=== PATIENT | female | born 1940 | race Caucasian/White ===

== ENCOUNTER 2016-12-06 23:46 | Observation (INO) ==
[2016-12-07 00:13] LABS: Basophils % 0.2 %; Eosinophils # 0.2 K/mcL (0.0-0.6); Eosinophils % 1.9 %; Hematocrit 37.2 % (35.3-44.9); Immature Granulocytes % 0.5 % (0-4); Lymphocytes # 1.4 K/mcL (0.6-4.6); Lymphocytes % 15.3 %; Mean Corpuscular HGB Conc 32.3 g/dL (31.6-35.5); Mean Corpuscular Hemoglobin 31.6 pg (28.0-33.3); Mean Corpuscular Volume 97.9 fL (83.0-100.0); Mean Platelet Volume 8.9 fL (9.4-12.4); Monocytes # 0.9 K/mcL (0.0-1.3); Monocytes % 9.9 %; Neutrophils # 6.4 K/mcL (1.6-8.9); Platelet Count 311 K/mcL (140-400); Red Cell Distribution Width 14.1 % (11.5-14.5); Segmented Neutrophils % 72.2 %
[2016-12-07 00:18] LABS: Prothrombin Time 10.6 Seconds (9.4-12.1)
[2016-12-07 00:21] LABS: Activated Partial Thrombo Time 25.1 Seconds (26.0-36.0)
[2016-12-07 00:28] LABS: BUN/Creatinine Ratio 21 (6-26); Blood Urea Nitrogen 18 mg/dL (7-20); Calcium 9.1 mg/dL (8.6-10.8); Carbon Dioxide 24 mEq/L (19-29); Chloride 103 mEq/L (98-109); Glucose 111 mg/dL (70-99); Osmolality,Calculated 289 (280-300); Potassium 3.8 mEq/L (3.5-4.5); Sodium 138 mEq/L (136-145); eGFR For African Americans > 60 (> 60); eGFR For Non-African Americans > 60 (> 60)
[2016-12-07 00:29] LABS: Alanine Aminotransferase 54 Units/L (0-55); Albumin 3.5 g/dL (3.5-5.0); Albumin/Globulin Ratio 1.2 (1.1-2.2); Alkaline Phosphatase 81 Units/L (38-126); Aspartate Amino Transferase 89 Units/L (5-34); Bilirubin,Indirect 0.2 mg/dL (0.0-1.2); Globulin 2.9 g/dL (2.4-3.5); Lipase 280 Units/L (8-78); Total Protein 6.4 g/dL (6.0-8.3)
[2016-12-07 00:33] LABS: Bilirubin,Direct < 0.1 mg/dL (0.0-0.5); Bilirubin,Total < 0.3 mg/dL (0.2-1.2)
[2016-12-07 01:19] LABS: Bilirubin,Urine Negative (Negative); Blood,Urine Negative (Negative); Clarity,Urine Clear (Clear); Color,Urine Yellow (Yellow); Glucose,Urine (UA) Normal (Normal); Ketones,Urine Negative (Negative); Leukocyte Esterase,Urine Small (Negative); Nitrite,Urine Negative (Negative); PH,Urine 5.5 pH Units (5.0-8.0); Protein,Urine Negative (Neg-Trace); Specific Gravity,Urine > 1.030 (1.010-1.025); Urobilinogen,Urine Normal (Normal)
[2016-12-07 01:26] LABS: Squamous Epithelial Cell,Urine Many per lpf (None-Few)
[2016-12-07 01:27] LABS: Bacteria,Urine Few per hpf (None-Few); Mucus,Urine Few (Few); RBC,Urine 0-3 per hpf (0-3)
--- NOTE | 2016-12-07 01:41 | Emergency Department Note ---
Disposition Clinical Impression: Chest pain, rule out acute myocardial infarction Disposition: Admitted As Inpatient Condition: Good Referrals: Bill Russo MD [Primary Care Provider] - Forms: ED Satisfaction Letter Time of Disposition: 01:59 Chest Pain HPI - General Chief Complaint: ED Chest Pain Stated Complaint: CP Time Seen by Provider: 12/06/16 23:49 Source: patient Limitations: no limitations Vital Signs Reviewed: Yes Nursing Notes Reviewed: Yes - History of Present Illness HPI Narrative: 76 year old female who has a multiple risk factor for cardiac disease including HTN, hyperlipidemia, diabetes, and early family history and states that she had midsternal chest pain at 2230 this moring with radiation into her left arm and jaw and increse exertinal dyspnea. Patinet states she does not have a previous history of KS or stent placement and has not had a recent cardiac catherization or stent placed. Patient denies nausea, vomitting, abdomninal pain or UTI symptoms. She denies history of DVT/PE. Severity scale (1-10): 3 - Related Data Home Medications Medication Instructions Recorded Confirmed Atorvastatin Calcium [Lipitor] 20 mg PO DAILY 04/21/15 12/07/16 Citalopram Hydrobromide [Celexa] 20 mg PO DAILY 04/21/15 12/07/16 Omega3/Dha/Epa/Fish Oil/Vit D3 1 cap PO DAILY 04/21/15 12/07/16 [Fish Oil + Vitamin D-3 Softgel] Pantoprazole Sodium [Protonix] 40 mg PO DAILY 04/21/15 12/07/16 Clopidogrel [Plavix] 75 mg PO DAILY 08/30/15 12/07/16 Losartan/Hydrochlorothiazide 1 tab PO DAILY 08/30/15 12/07/16 [Hyzaar 100-25 Tablet] Metoprolol XL (24 HR) Succ [Toprol 25 mg PO DAILY 08/30/15 12/07/16 Xl] TraZODone 150 mg PO HS 08/30/15 12/07/16 metFORMIN [Glucophage] 1,000 mg PO BID 08/30/15 12/07/16 Allergies Allergy/AdvReac Type Severity Reaction Status Date / Time No Known Allergies Allergy Verified 09/11/15 02:04 Constitutional: Denies: fever, chills, weakness, weight change Eyes: Denies: eye pain, eye discharge, vision change ENT ED: Denies: ear pain, throat pain, dental pain, hearing loss, epistaxis, congestion, dysphagia Cardiovascular: Reports: chest pain, dyspnea on exertion. Denies: palpitations , edema, syncope, paroxysmal nocturnal dyspnea Respiratory: Denies: cough, dyspnea, wheezes, hemoptysis, stridor Gastrointestinal: Denies: abdominal pain, nausea, vomiting, diarrhea, constipation, hematemesis, melena, hematochezia Genitourinary: Denies: dysuria, frequency, hematuria, discharge Musculoskeletal: Denies: back pain, neck pain, arthralgia, myalgia Integumentary: Denies: rash, abrasion, lesions Neurological: Denies: headache, weakness, numbness, paresthesias, confusion, abnormal gait, vertigo Psychiatric: Denies: anxiety, depression, suicidal thoughts, homicidal thoughts , auditory hallucinations, visual hallucinations Endocrine: Denies: fatigue Hematological/Lymphatic: Denies: easy bleeding, easy bruising Allergic/Immunologic: Denies: facial swelling, urticaria Chest Pain PMH - Past Medical History Medical history: Reports: CVA, diabetes, hyperlipidemia, hypertension, TIA, other Surgical history: Reports: appendectomy, cholecystectomy Psychiatric history: Reports: no psych history - Social History Smoking Status: Never smoker Alcohol use: Reports: none Drug use: Reports: none Physical Exam - General Limitations: no limitations General appearance: alert, in no apparent distress - Head Head exam: atraumatic, normocephalic, normal inspection - Eye Eye exam: Present: normal appearance, PERRL, EOMI - Expanded Eye Exam Pupils: Left: reactive - ENT ENT exam: normal exam, normal oropharynx, mucous membranes moist - Expanded ENT Exam External ear exam: Present: normal external inspection Mouth exam: Present: normal external inspection Teeth exam: Present: normal inspection Throat exam: Present: normal inspection - Neck Neck exam: Present: normal inspection, full ROM, trachea midline - Chest Chest inspection: Present: normal inspection, symmetric chest wall rise - Respiratory Respiratory exam: Present: normal lung sounds bilaterally - Cardiovascular Cardiovascular exam: Present: regular rate, normal rhythm, normal heart sounds - Abdominal Exam Abdominal exam: Present: soft, Non-Tender. Absent: tenderness, distention, guarding, rebound, rigidity - Extremities Exam Extremities exam: Present: normal inspection, full ROM. Absent: tenderness, pedal edema - Expanded Upper Extremity Exam Shoulder exam: Present: normal inspection, full ROM Arm exam: Present: normal inspection, full ROM Elbow exam: Present: normal inspection, full ROM Forearm/Wrist exam: Present: normal inspection, full ROM Hand exam: Present: normal inspection, full ROM Vascular exam: Normal: capillary refill, radial pulse - Expanded Lower Extremity Exam Hip/Pelvis exam: Present: normal inspection, full ROM Upper leg exam: Present: normal inspection, full ROM Knee exam: Present: normal inspection, full ROM Lower leg exam: Present: normal inspection, full ROM Ankle exam: Present: normal inspection, full ROM Foot/toe exam: Present: normal inspection, full ROM Neurovascular/Tendon exam: Absent: motor deficit, sensory deficit, tendon deficit - Back Exam Back exam: Present: normal inspection, full ROM. Absent: tenderness - Neurological Exam Neurological exam: Present: alert, oriented X3 - Expanded Neurological Exam Patient oriented to: Present: person, place, time Coma Scale Eye Opening: Spontaneous Coma Scale Motor Response: Obeys Commands Coma Scale Verbal Response: Oriented Coma Scale Total: 15 - Psychiatric Psychiatric exam: Present: normal affect, normal mood - Skin Skin exam: Present: warm, dry, intact, normal color Course Course Narrative: we will do chest pain workup with lipase and lfts. ASA and nitro for pain relief. - Reevaluation(s) Reevaluation #1: elevated lipase, will obtain a ABCT to rule out pancreatitis Time: 01:00 Reevaluation #2: stephanie will be admitted to medicine for rule out ACS. Patient is agreeable to plan. Time: 01:44 - Consultations Consultation #1: discussed case with Dr. Lu and he accepts stephanie for admission Time: 01:59 Vital Signs Temperature 98.0 F 12/06/16 23:48 Pulse Rate 78 12/06/16 23:48 Respiratory Rate 16 12/06/16 23:48 Blood Pressure 131/76 12/06/16 23:48 O2 Sat by Pulse Oximetry 94 12/06/16 23:48 Temperature 98.0 F 12/06/16 23:48 Pulse Rate 73 12/07/16 01:23 Respiratory Rate 16 12/07/16 01:23 Blood Pressure 124/77 12/07/16 01:23 O2 Sat by Pulse Oximetry 94 12/07/16 01:23 Oxygen Delivery Oxygen Delivery Room Air Chest Pain - Lab Data Result diagrams: 12/07/16 00:06 12/07/16 00:06 Lab Results 12/07/16 12/07/16 12/07/16 Range/Units 00:06 00:06 00:06 WBC (4.3-11.1) K/mcL RBC (3.82-4.97) M/mcL Hgb (11.5-15.4) g/dL Hct (35.3-44.9) % MCV (83.0-100.0) fL MCH (28.0-33.3) pg MCHC (31.6-35.5) g/dL RDW (11.5-14.5) % Plt Count (140-400) K/mcL MPV (9.4-12.4) fL Immature Gran % (0-4) % Seg Neutrophils % % Lymphocytes % % Monocytes % % Eosinophils % % Basophils % % Neutrophils # (1.6-8.9) K/mcL Lymphocytes # (0.6-4.6) K/mcL Monocytes # (0.0-1.3) K/mcL Eosinophils # (0.0-0.6) K/mcL Basophils # (0.0-0.2) K/mcL PT 10.6 (9.4-12.1) Seconds INR 1.0 APTT 25.1 L (26.0-36.0) Seconds Sodium (136-145) mEq/L Potassium (3.5-4.5) mEq/L Chloride (98-109) mEq/L Carbon Dioxide (19-29) mEq/L BUN (7-20) mg/dL Creatinine (0.57-1.11) mg/dL Est GFR ( Amer) (> 60) Est GFR (Non-Af Amer) (> 60) BUN/Creatinine Ratio (6-26) Glucose (70-99) mg/dL Calculated Osmolality (280-300) Calcium (8.6-10.8) mg/dL Total Bilirubin < 0.3 (0.2-1.2) mg/dL Direct Bilirubin < 0.1 (0.0-0.5) mg/dL Indirect Bilirubin 0.2 (0.0-1.2) mg/dL AST 89 H (5-34) Units/L ALT 54 (0-55) Units/L Alkaline Phosphatase 81 (38-126) Units/L Troponin I (0-0.03) ng/mL B-Natriuretic Peptide 14 (0-100) pg/mL Serum Total Protein 6.4 (6.0-8.3) g/dL Albumin 3.5 (3.5-5.0) g/dL Globulin 2.9 (2.4-3.5) g/dL Albumin/Globulin Ratio 1.2 (1.1-2.2) Lipase 280 H (8-78) Units/L Urine Color (Yellow) Urine Clarity (Clear) Urine pH (5.0-8.0) pH Units Ur Specific [place] (1.010-1.025) Urine Protein (Neg-Trace) mg/dL Urine Glucose (UA) (Normal) mg/dL Urine Ketones (Negative) mg/dL Urine Blood (Negative) Urine Nitrite (Negative) Urine Bilirubin (Negative) Urine Urobilinogen (Normal) mg/dL Ur Leukocyte Esterase (Negative) Urine Microscopic RBC (0-3) per hpf Urine Microscopic WBC (0-3) per hpf Ur Squamous Epith Cells (None-Few) per lpf Urine Bacteria (None-Few) per hpf Urine Mucus (Few) Ur Culture Indicated? (NO) 12/07/16 12/07/16 12/07/16 Range/Units 00:06 00:06 00:06 WBC 8.8 (4.3-11.1) K/mcL RBC 3.80 L (3.82-4.97) M/mcL Hgb 12.0 (11.5-15.4) g/dL Hct 37.2 (35.3-44.9) % MCV 97.9 (83.0-100.0) fL MCH 31.6 (28.0-33.3) pg MCHC 32.3 (31.6-35.5) g/dL RDW 14.1 (11.5-14.5) % Plt Count 311 (140-400) K/mcL MPV 8.9 L (9.4-12.4) fL Immature Gran % 0.5 (0-4) % Seg Neutrophils % 72.2 % Lymphocytes % 15.3 % Monocytes % 9.9 % Eosinophils % 1.9 % Basophils % 0.2 % Neutrophils # 6.4 (1.6-8.9) K/mcL Lymphocytes # 1.4 (0.6-4.6) K/mcL Monocytes # 0.9 (0.0-1.3) K/mcL Eosinophils # 0.2 (0.0-0.6) K/mcL Basophils # 0.0 (0.0-0.2) K/mcL PT (9.4-12.1) Seconds INR APTT (26.0-36.0) Seconds Sodium 138 (136-145) mEq/L Potassium 3.8 (3.5-4.5) mEq/L Chloride 103 (98-109) mEq/L Carbon Dioxide 24 (19-29) mEq/L BUN 18 (7-20) mg/dL Creatinine 0.87 (0.57-1.11) mg/dL Est GFR ( Amer) > 60 (> 60) Est GFR (Non-Af Amer) > 60 (> 60) BUN/Creatinine Ratio 21 (6-26) Glucose 111 H (70-99) mg/dL Calculated Osmolality 289 (280-300) Calcium 9.1 (8.6-10.8) mg/dL Total Bilirubin (0.2-1.2) mg/dL Direct Bilirubin (0.0-0.5) mg/dL Indirect Bilirubin (0.0-1.2) mg/dL AST (5-34) Units/L ALT (0-55) Units/L Alkaline Phosphatase (38-126) Units/L Troponin I 0.01 (0-0.03) ng/mL B-Natriuretic Peptide (0-100) pg/mL Serum Total Protein (6.0-8.3) g/dL Albumin (3.5-5.0) g/dL Globulin (2.4-3.5) g/dL Albumin/Globulin Ratio (1.1-2.2) Lipase (8-78) Units/L Urine Color (Yellow) Urine Clarity (Clear) Urine pH (5.0-8.0) pH Units Ur Specific [place] (1.010-1.025) Urine Protein (Neg-Trace) mg/dL Urine Glucose (UA) (Normal) mg/dL Urine Ketones (Negative) mg/dL Urine Blood (Negative) Urine Nitrite (Negative) Urine Bilirubin (Negative) Urine Urobilinogen (Normal) mg/dL Ur Leukocyte Esterase (Negative) Urine Microscopic RBC (0-3) per hpf Urine Microscopic WBC (0-3) per hpf Ur Squamous Epith Cells (None-Few) per lpf Urine Bacteria (None-Few) per hpf Urine Mucus (Few) Ur Culture Indicated? (NO) 12/07/16 Range/Units 01:10 WBC (4.3-11.1) K/mcL RBC (3.82-4.97) M/mcL Hgb (11.5-15.4) g/dL Hct (35.3-44.9) % MCV (83.0-100.0) fL MCH (28.0-33.3) pg MCHC (31.6-35.5) g/dL RDW (11.5-14.5) % Plt Count (140-400) K/mcL MPV (9.4-12.4) fL Immature Gran % (0-4) % Seg Neutrophils % % Lymphocytes % % Monocytes % % Eosinophils % % Basophils % % Neutrophils # (1.6-8.9) K/mcL Lymphocytes # (0.6-4.6) K/mcL Monocytes # (0.0-1.3) K/mcL Eosinophils # (0.0-0.6) K/mcL Basophils # (0.0-0.2) K/mcL PT (9.4-12.1) Seconds INR APTT (26.0-36.0) Seconds Sodium (136-145) mEq/L Potassium (3.5-4.5) mEq/L Chloride (98-109) mEq/L Carbon Dioxide (19-29) mEq/L BUN (7-20) mg/dL Creatinine (0.57-1.11) mg/dL Est GFR ( Amer) (> 60) Est GFR (Non-Af Amer) (> 60) BUN/Creatinine Ratio (6-26) Glucose (70-99) mg/dL Calculated Osmolality (280-300) Calcium (8.6-10.8) mg/dL Total Bilirubin (0.2-1.2) mg/dL Direct Bilirubin (0.0-0.5) mg/dL Indirect Bilirubin (0.0-1.2) mg/dL AST (5-34) Units/L ALT (0-55) Units/L Alkaline Phosphatase (38-126) Units/L Troponin I (0-0.03) ng/mL B-Natriuretic Peptide (0-100) pg/mL Serum Total Protein (6.0-8.3) g/dL Albumin (3.5-5.0) g/dL Globulin (2.4-3.5) g/dL Albumin/Globulin Ratio (1.1-2.2) Lipase (8-78) Units/L Urine Color Yellow (Yellow) Urine Clarity Clear (Clear) Urine pH 5.5 (5.0-8.0) pH Units Ur Specific [place] > 1.030 H (1.010-1.025) Urine Protein Negative (Neg-Trace) mg/dL Urine Glucose (UA) Normal (Normal) mg/dL Urine Ketones Negative (Negative) mg/dL Urine Blood Negative (Negative) Urine Nitrite Negative (Negative) Urine Bilirubin Negative (Negative) Urine Urobilinogen Normal (Normal) mg/dL Ur Leukocyte Esterase Small H (Negative) Urine Microscopic RBC 0-3 (0-3) per hpf Urine Microscopic WBC 5-15 H (0-3) per hpf Ur Squamous Epith Cells Many H (None-Few) per lpf Urine Bacteria Few (None-Few) per hpf Urine Mucus Few (Few) Ur Culture Indicated? YES A (NO) - EKG Data EKG attestation: Yes I reviewed and interpreted this EKG. EKG results narrative: NSR with rate of 78. NO STEMI. normal intercals. no change from 10/23/14. electroncially paced. [id number] Heart Score - Score History: Moderately Suspicious EKG: Normal Age: Greater than 65 Risk Factors: Equal/Greater than 3 risk factor or history of atherosclerotic disease Troponin: Less than normal limit HEART Score Total: 5
[2016-12-07] MEDS ORDERED: Aspirin 325 MG TABLET PO ONE (01:43)
[2016-12-07] MEDS ORDERED: *HR* Morphine 2 MG/ML SYRINGE IVP ONE (01:43)
[2016-12-07] MEDS ORDERED: *HR* Morphine 2 MG/ML SYRINGE IVP PRN (02:43)
[2016-12-07] MEDS ORDERED: Naloxone 0.4 MG/ML INJ IVP PRN (02:43)
[2016-12-07] MEDS ORDERED: Ondansetron 4 MG/2 ML VIAL IVP PRN (02:43)
[2016-12-07] MEDS ORDERED: Acetaminophen 325 MG TABLET PO PRN (02:43)
[2016-12-07] MEDS ORDERED: *HR* HYDROcodone/Acet 5/325 mg TABLET PO PRN (02:43)
[2016-12-07] MEDS ORDERED: Dextrose Gel 15 GM PO PRN ×2 (02:45)
[2016-12-07] MEDS ORDERED: *HR* Dextrose 50 % in Water (Syg) 50 ML SYRINGE IVP PRN (02:45)
[2016-12-07] MEDS ORDERED: D5% in Water 1,000 ML IVC PRN (02:45)
[2016-12-07] MEDS ORDERED: Nitroglycerin 0.4 MG TAB.SUBL SL PRN (02:46)
--- NOTE | 2016-12-07 02:48 | Internal Med History&Physical ---
Date of Encounter: 12/07/16 Time of Encounter: 02:00 Internal Medicine - H&P: HPI History of present illness: Ms. Lopez is a 76 year old female Past Med Surg Social Fam HX - Past Medical History Medical history: CVA, diabetes, hyperlipidemia, hypertension, TIA, other Psychiatric history: no psych history - Past Surgical History Surgical History: appendectomy, cholecystectomy - Social History Smoking Status: Never smoker Smokeless Tobacco Status: No Alcohol use: none Drug use: none Internal Medicine - H&P: Meds Atorvastatin Calcium [Lipitor] 20 mg PO DAILY 04/21/15 [History] Citalopram Hydrobromide [Celexa] 20 mg PO DAILY 04/21/15 [History] Omega3/Dha/Epa/Fish Oil/Vit D3 [Fish Oil + Vitamin D-3 Softgel] 1 cap PO DAILY 04/21/15 [History] Pantoprazole Sodium [Protonix] 40 mg PO DAILY 04/21/15 [History] Clopidogrel [Plavix] 75 mg PO DAILY 08/30/15 [History] Losartan/Hydrochlorothiazide [Hyzaar 100-25 Tablet] 1 tab PO DAILY 08/30/15 [ History] Metoprolol XL (24 HR) Succ [Toprol Xl] 25 mg PO DAILY 08/30/15 [History] TraZODone 150 mg PO HS 08/30/15 [History] metFORMIN [Glucophage] 1,000 mg PO BID 08/30/15 [History] 3 Allergy/AdvReac Type Severity Reaction Status Date / Time No Known Allergies Allergy Verified 09/11/15 02:04 All Systems PM: A 10-system review of systems was performed and is negative for pertinent findings except as documented above in the HPI. - Constitutional Vitals: Temp Pulse Resp BP Pulse Ox 98.0 F 73 16 124/77 94 12/06/16 23:48 12/07/16 01:23 12/07/16 01:23 12/07/16 01:23 12/07/16 01:23 Internal Med - H&P Results - Labs CBC & Chem 7: 12/07/16 00:06 12/07/16 00:06 - Impressions ITS Impressions Chest X-Ray 12/07/16 23:50 IMPRESSION: Negative portable chest. D/ / Stuart Segura MD / Stuart Segura MD Interpreting Provider: Stuart Segura MD
--- NOTE | 2016-12-07 03:16 | Internal Med History&Physical ---
Date of Encounter: 12/07/16 Time of Encounter: 03:13 Assessment and Plan (1) Chest pain, rule out acute myocardial infarction Current visit: Yes Status: Acute due to high risk factors given co-morbidities, admit for stress testing r/o cardiac ischemia and risk stratification. Trend trop (2) DMII (diabetes mellitus, type 2) Current visit: Yes Status: Acute hold metformin, ISS for now Qualifiers: Diabetes mellitus complication status: without complication Diabetes mellitus mcc insulin use: without dedicated intermodal truck driver use Qualified Code(s): E11.9 - Type 2 diabetes mellitus without complications (3) HTN (hypertension) Current visit: Yes Status: Acute continue med Qualifiers: Hypertension type: essential hypertension Qualified Code(s): I10 - Essential (primary) hypertension (4) HLD (hyperlipidemia) Current visit: Yes Status: Acute statin Qualifiers: Qualified Code(s): E78.2 - Mixed hyperlipidemia (5) CVA (cerebral vascular accident) Current visit: Yes Status: Acute hx of CVA. 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 She was lying in bed around 1030 pm when she experienced a squeezing substernal pain , 9/10, one of the worse pain she has felt, some radiation under the jaw, lasting for approx 20mins. That put her into a panic and led to her calling family and arrival to the ED. On encounter, the chest pain is not as sharp after ASA given but still has a heavy sensation. EKG reviewed by self with rate 78, NSR Lipase noted 280 but no abdominal pain or imaging evidence of pancreatitis on CT A/P CXR wnl Past Med Surg Social Fam HX - Past Medical History Medical history: CVA, diabetes, hyperlipidemia, hypertension, TIA, other Psychiatric history: no psych history - Past Surgical History Surgical History: appendectomy, cholecystectomy - Social History Smoking Status: Never smoker Smokeless Tobacco Status: No Alcohol use: none Drug use: none - Additional Family History Additional family history: HTN Internal Medicine - H&P: Meds Atorvastatin Calcium [Lipitor] 20 mg PO DAILY 04/21/15 [History] Citalopram Hydrobromide [Celexa] 20 mg PO DAILY 04/21/15 [History] Omega3/Dha/Epa/Fish Oil/Vit D3 [Fish Oil + Vitamin D-3 Softgel] 1 cap PO DAILY 04/21/15 [History] Pantoprazole Sodium [Protonix] 40 mg PO DAILY 04/21/15 [History] Clopidogrel [Plavix] 75 mg PO DAILY 08/30/15 [History] Losartan/Hydrochlorothiazide [Hyzaar 100-25 Tablet] 1 tab PO DAILY 08/30/15 [ History] Metoprolol XL (24 HR) Succ [Toprol Xl] 25 mg PO DAILY 08/30/15 [History] TraZODone 150 mg PO HS 08/30/15 [History] metFORMIN [Glucophage] 1,000 mg PO BID 08/30/15 [History] 3 Allergy/AdvReac Type Severity Reaction Status Date / Time No Known Allergies Allergy Verified 09/11/15 02:04 All Systems PM: A 10-system review of systems was performed and is negative for pertinent findings except as documented above in the HPI. Review of systems: ROS 14 point review of systems reviewed as best as possible given presentation. Pertinent positive or negative as per HPI or otherwise reviewed as negative - Constitutional Vitals: Temp Pulse Resp BP Pulse Ox 98.0 F 73 16 145/83 94 12/06/16 23:48 12/07/16 01:23 12/07/16 02:55 12/07/16 02:55 12/07/16 01:23 Exam: General - AAO x 3 Psych - Appropriate affect/speech. No agitation Eyes - MARIUSZ. Eye lids intact. No scleral icterus ENT - Oral mucosa pink, dentition intact. External ear clear/dry/intact. No thyromegaly Lymphatics - No cervical/inguinal lympadenopathy Neuro - No gross peripheral or central neuro deficits with intact CN 2-12 exam Heart - Sinus. RRR. S1 and S2 present. No added HS/murmurs appreciated. No elevated JVD appreciated. No calf swellings/erythema Lung - Adequate air entry b/l, No crackes/wheezes appreciated GI - Soft, non-tender. No hepatosplenomegaly/ascites. BS+ - No CVA/suprapubic tenderness or palpable bladder distension Skin - Intact. No rash/petechiae/ecchymosis. Warm extremities MSK - Joints with normal ROM. No joint swellings Internal Med - H&P Results - Labs CBC & Chem 7: 12/07/16 00:06 12/07/16 00:06 - Impressions ITS Impressions Chest X-Ray 12/07/16 23:50 IMPRESSION: Negative portable chest. D/ / Stuart Segura MD / Stuart Segura MD Interpreting Provider: Stuart Segura MD
[2016-12-07] MEDS ORDERED: Regadenoson 0.4 MG/5 ML SYRINGE IVP ONE (05:53)
[2016-12-07] MEDS: Insulin LISPRO 300 UNITS/3 ML VIAL SQ SCH ×2 (06:06→11:53)
[2016-12-07] MEDS: *HR* Heparin 5,000 UNIT/ML VIAL SQ SCH ×2 (06:11→15:28)
[2016-12-07] MEDS ORDERED: Metoprolol XL (24 HR) Succ 25 MG TAB.ER.24H PO SCH (09:00)
--- NOTE | 2016-12-07 11:38 | Nuclear Medicine Stress Report ---
Regadenoson Nuclear Stress Name: Kenzie Lopez Date of Study: 12/07/2016 Date: 1940 Ht: 63.0 in Medical Record#: [id number] Age: 76 Wt: 180.0 lb Gender: Female Order #: [id number] Location: [facility] Room: [facility] Supervising Provider: Alexis Forbes CNP Reading Physician: Kasia Gustafson DO Ordering Physician: Bebe Andrews CNP Primary Care Physician: Bill Russo MD Stress Technologist: Aaron Liang CRT Wool Puller: Aleida Brock Indications: Chest Pain Impression: Perfusion imaging was negative for ischemia or infarct. Pharmacologic ECG was negative for ischemia at the level of heart rate achieved. Gated EF = >70%. History: Hypertension Diabetes Hypercholesteremia Stress Test Summary: Stress Test Type: Pharmacologic Regadenoson 0.4mg/5ml given IV Baseline Information: Initial Heart Rate: 74 Blood Pressure: 108/72 Stress Information: Test Terminated Due to (primary): As per protocol Maximum Blood Pressure: 114/64 Maximum Heart Rate: 104 Percent Maximum Heart Rate Achieved: 65 Double Product: [id number] METS Reached: 1 Symptoms: No chest symptoms Nuclear Summary: SPECT myocardial perfusion imaging using Tc99m Sestamibi given intravenously was performed at rest and following cardiac stress testing. The resting images were obtained following initial dose of 11.4 mCi. Following stress an additional dose of 35.5 mCi was given at peak exercise or 30 seconds post regadenoson infusion. Medication Given: Time Medication Dose Units Route Findings: Stress Note * Resting ECG demonstrated normal sinus rhythm with left axis deviation, poor R-wave progression. * Pharmacologic stress ECG is negative for ischemia at level of heart rate achieved. * No arrhythmias were noted during stress. * Patient had no chest pain during stress. Hemodynamic responses * Normal hemodynamic responses to pharmacologic stress. Study Quality * Study quality is good. Gated EF > 70% * Gated EF > 70%. Left Ventricle * The left ventricle is not dilated. TID * No evidence of transient ischemic dilatation. Lung Uptake * There is no evidence of increase lung uptake. NORMALS * Normal wall motion. * Normal segmental perfusion in stress. * Normal Segmental Perfusion in rest. Updated by Kasia Gustafson on 12/07/2016 11:33:04 AM electronically signed on 12/07/2016 11:33:54 AM with status of Final
[2016-12-07] MEDS: Losartan/HCTZ 50-12.5 TABLET PO SCH ×2 (11:52→11:55)
[2016-12-07 15:21] VITALS: BP 139/94
--- NOTE | 2016-12-07 15:38 | Electrocardiograph Report ---
[place] [address] Test Date: 2016-12-06 Pat Name: Kenzie Lopez Department: 104 Room: 3B45 Gender: F Manager Mail: : 1940 Requested By: Jessica Velasquez Order Number: [id number] Reading MD: Kasia Gustafson Measurements Intervals [place] Rate: 78 P: -17 LA: 319 QRS: -26 QRSD: 82 T: 8 QT: 393 QTc: 426 Interpretive Statements ARTIFACT Electronically Signed On 12-07-2016 15:36:26 EDT by Kasia Gustafson
--- NOTE | 2016-12-07 16:12 | Discharge Summary ---
Date of Encounter: 12/07/16 Time of Encounter: 16:08 - Discharge Diagnosis (1) Chest pain, rule out acute myocardial infarction Priority: Primary Status: Acute (2) DMII (diabetes mellitus, type 2) Priority: Secondary Status: Acute Qualifiers: Diabetes mellitus complication status: without complication Diabetes mellitus parts counterman insulin use: without parts counterman use Qualified Code(s): E11.9 - Type 2 diabetes mellitus without complications (3) HTN (hypertension) Priority: Secondary Status: Acute Qualifiers: Hypertension type: essential hypertension Qualified Code(s): I10 - Essential (primary) hypertension (4) HLD (hyperlipidemia) Priority: Secondary Status: Acute Qualifiers: Qualified Code(s): E78.2 - Mixed hyperlipidemia (5) CVA (cerebral vascular accident) Priority: Secondary Status: Acute Qualifiers: Laterality of affected vessel: unspecified Qualified Code(s): 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 - Discharge Medications Home Medications: Atorvastatin Calcium [Lipitor] 20 mg PO DAILY 04/21/15 [History] Citalopram Hydrobromide [Celexa] 20 mg PO DAILY 04/21/15 [History] Omega3/Dha/Epa/Fish Oil/Vit D3 [Fish Oil + Vitamin D-3 Softgel] 1 cap PO DAILY 04/21/15 [History] Pantoprazole Sodium [Protonix] 40 mg PO DAILY 04/21/15 [History] Clopidogrel [Plavix] 75 mg PO DAILY 08/30/15 [History] Losartan/Hydrochlorothiazide [Hyzaar 100-25 Tablet] 1 tab PO DAILY 08/30/15 [ History] Metoprolol XL (24 HR) Succ [Toprol Xl] 25 mg PO DAILY 08/30/15 [History] TraZODone 150 mg PO HS 08/30/15 [History] metFORMIN [Glucophage] 1,000 mg PO BID 08/30/15 [History] Allergies/Adverse Reactions: 3 Allergy/AdvReac Type Severity Reaction Status Date / Time No Known Allergies Allergy Verified 09/11/15 02:04 Procedures/tests Complete & Pending: Procedures Performed prior 72 hours Category Date Time Status NM deborah perf SPECT multi [NM] Routine Exams 12/07/16 02:52 Taken SP pharm nuclear stress Routine Y 12/07/16 07:15 Completed Date of admission: 12/07/16 02:20 Primary care physician: Bill Russo MD - Patient Status Disposition: Home, Self-Care Condition: Good Overall status at discharge: patient is back to baseline - Discharge Instructions Follow Up With: Bill Russo MD [Primary Care Provider] - - Diet and Activity Activity: increase activity as tolerated Diet: low salt diet Hospital course: Ms. 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 She was lying in bed around 1030 pm when she experienced a squeezing substernal pain , 12/23, one of the worse pain she has felt, some radiation under the jaw, lasting for approx 20mins. That put her into a panic and led to her calling family and arrival to the ED. On encounter, the chest pain is not as sharp after ASA given but still has a heavy sensation. Pt was admitted here for chest pain and placed on groundwater monitoring technician checked her serial troponin. All her troponin came back as negative and no acute EKG changes noticed. Since she is high risk for ACS, we did cardiac stress test . Her stress test came back as negative for any ishcemia. At this point we are discharging her home in stable condition. Recommend to continue all her home medication. Her lipase seems to be slightly elevated, but no abdominal pain. her CT of Abd / pelvis did not show any pancreatic changes. Pt did mention she does drink wine every night, so recommend to cut back on her alcohol intake. - Time Spent with Patient Total time spent providing and/or coordinating discharge services: - Constitutional Vitals: Temp Pulse Resp BP Pulse Ox 98.0 F 80 16 139/94 93 12/07/16 15:20 12/07/16 15:20 12/07/16 15:20 12/07/16 15:20 12/07/16 15:20 General appearance: Present: A&O X 3, pleasant, no acute distress - Head Head exam: Present: atraumatic, normal inspection - Respiratory Respiratory exam: Present: decreased breath sounds, wheezes. Absent: rales, respiratory distress, rhonchi - Cardiovascular Cardiovascular exam: Present: RRR, +S1, +S2, systolic murmur. Absent: gallop, rubs - GI/Abdominal GI/Abdominal exam: Present: soft, no peritoneal signs. Absent: distended, tenderness - Extremities Exam Extremities exam: Absent: calf tenderness, pedal edema, tenderness - Neurological Exam Neurological exam: Present: alert, oriented X3 - Psychiatric Psychiatric exam: Present: normal affect, normal mood
[2016-12-07] MEDS ORDERED: traZODone 50 MG TABLET PO SCH (21:00)
== END 2016-12-07 17:28 | disposition home or self-care (01) ==
LOC: EMEROO 23:46 → 3BNU 23:46
PROVIDERS: ADMIT Internal Medicine Hematology & Oncology; ATTEND Nurse Practitioner Family